=== PATIENT | male | born 1980 | race African-American/Black ===

== ENCOUNTER 2022-04-30 21:22 | Emergency (ER) | payer SELFPAY ==
[2022-04-30] MEDS ORDERED: ONDANSETRON 4 MG/2 ML VIAL ONE (22:46)
[2022-04-30] MEDS ORDERED: NA CHLORIDE 0.9% 1,000 ML ONE (22:46)
[2022-04-30] MEDS ORDERED: MORPHINE 4 MG/ML SYR ONE (22:46)
[2022-04-30 23:21] LABS: Absolute Lymphocytes (CBC) 1.3 K/uL (0.7-4.9); Hematocrit 43.7 % (39.6-49.0); Lymphocytes % 16.6 % (15.3-44.8); MCV 85.1 fL (80-100); MPV 8.2 fL (7.6-11.3); RBC Red Blood Cell Count 5.14 M/uL (4.33-5.43)
[2022-04-30 23:38] LABS: Albumin 3.8 g/dL (3.4-5.0); Bilirubin Total 0.5 mg/dL (0.2-1.0); Potassium 3.5 mmol/L (3.5-5.1); Protein, Total 7.9 g/dL (6.4-8.2)
--- NOTE | 2022-05-01 01:54 | EDPHYS ---
Physician Documentation [facility] Name: Solo Greenberg Age: 41 yrs Sex: Male : 1980 Arrival Date: 04/30/2022 Time: 21:24 Bed 27 Private MD: ED Physician Deepak Ayala HPI: 05/01 00:57 This 41 yrs old Black Male presents to ER via Wheelchair with complaints of Abdominal kb Pain. 00:57 The patient presents with abdominal pain right lower quadrant. Onset: The kb symptoms/episode began/occurred at 19:30. The symptoms do not radiate. Associated signs and symptoms: none. The symptoms are described as constant. Modifying factors: The symptoms are alleviated by nothing, the symptoms are aggravated by movement, pressure. Severity of pain: At its worst the pain was moderate in the emergency department the pain is unchanged. The patient has not experienced similar symptoms in the past. The patient has not recently seen a physician. Historical: - Allergies: 04/30 21:33 No Known Allergies; hb - Home Meds: 21:33 None [Active]; hb - PMHx: 21:33 None; hb - PSHx: 21:33 None; hb - Immunization history:: Adult Immunizations up to date. - Social history:: Smoking status: Patient reports the use of cigarette tobacco products, smokes one-half pack cigarettes per day. ROS: 05/01 00:56 Constitutional: Negative for fever, chills, and weight loss. kb Abdomen/GI: Positive for abdominal pain, Negative for nausea, vomiting, and diarrhea. All other systems are negative. Exam: 00:56 Constitutional: This is a well developed, well nourished patient who is awake, alert, kb and in no acute distress. Head/Face: Normocephalic, atraumatic. ENT: Moist Mucous membranes Cardiovascular: Regular rate and rhythm with a normal S1 and S2. No gallops, murmurs, or rubs. No pulse deficits. Respiratory: Respirations even and unlabored. No increased work of breathing. Talking in full sentences Skin: Warm, dry with normal turgor. Normal color. MS/ Extremity: Pulses equal, no cyanosis. Neurovascular intact. Full, normal range of motion. Neuro: Awake and alert, GCS 15, oriented to person, place, time, and situation. Moves all extremities. Normal gait. Psych: Awake, alert, with orientation to person, place and time. Behavior, mood, and affect are within normal limits. 00:56 Abdomen/GI: Inspection: abdomen appears normal, Bowel sounds: normal, Palpation: soft, in all quadrants, moderate abdominal tenderness, in the right lower quadrant, Indicators: Rovsing's sign is positive. Vital Signs: 04/30 21:31 BP 134 / 77; Pulse 79; Resp 16; Temp 98.6; Pulse Ox 100% ; Weight 72.57 kg; Height 5 hb ft. 9 in. (175.26 cm); Pain 8/10; 23:04 BP 124 / 78; Pulse 82; Resp 18; Pulse Ox 100% on R/A; tw5 05/01 00:09 Pain 5/10; tw5 00:09 BP 114 / 60; Pulse 85; Resp 18; Pulse Ox 100% ; Pain 5/10; tw5 02:18 BP 106 / 53; Pulse 84; Resp 18; Pulse Ox 99% on R/A; Pain 6/10; tw5 04/30 21:31 Body Mass Index 23.63 (72.57 kg, 175.26 cm) hb MDM: 04/30 21:33 Patient medically screened. kb 05/01 00:53 Data reviewed: vital signs, nurses notes. Data interpreted: Pulse oximetry: on room air kb is 100 %. Interpretation: normal. 01:05 Transition of care: After a detail discussion of the patient's case, care is kb transferred to [facility]. 01:56 ED course: Discussed labs and CT findings with patient. Patient to follow-up with Dr. renea Mcneil in 2 to 3 days. Patient understands and agrees with plan. All questions were answered. Return precautions discussed include worsening symptoms, or any other concerns. 04/30 21:34 Order name: CBC with Diff; Complete Time: 23:24 kb 04/30 21:34 Order name: CMP; Complete Time: 23:39 kb 04/30 21:34 Order name: Lipase; Complete Time: 23:39 kb 04/30 21:34 Order name: CT Abd/Pelvis - IV Contrast Only kb 04/30 21:34 Order name: IV Saline Lock; Complete Time: 23:06 kb 04/30 21:34 Order name: Labs collected and sent; Complete Time: 23:06 kb Administered Medications: 04/30 23:06 Drug: NS 0.9% 1000 ml Route: IV; Rate: 1 bolus; Site: left antecubital; 05/01 00:09 Follow up: Response: No adverse reaction; IV Status: Completed infusion; IV Intake: tw5 1000ml 04/30 23:06 Drug: Zofran (Ondansetron) 4 mg Route: IVP; Site: left antecubital; 05/01 00:08 Follow up: Response: No adverse reaction 04/30 23:06 Drug: morphine 4 mg Route: IVP; Infused Over: 4 mins; Site: left antecubital; 05/01 00:09 Follow up: Pain 5/10 Adult; Response: No adverse reaction; Pain is decreased Disposition: 01:57 Co-signature as Attending Physician, Deepak Ayala DO. ms3 Disposition Summary: 05/01/22 01:53 Discharge Ordered Location: Home ms3 Condition: Stable ms3 Diagnosis - Lower abdominal pain, unspecified ms3 Followup: ms3 - With: Dorian Mcneil DO - When: 2 - 3 days - Reason: Recheck today's complaints Discharge Instructions: - Discharge Summary Sheet ms3 - Abdominal Pain, Adult ms3 - Constipation, Adult ms3 - Constipation, Adult, [id number] ms3 Forms: - Medication Reconciliation Form ms3 - Work release form bb - Thank You Letter ms3 - Antibiotic Education ms3 - Prescription Opioid Use ms3 Signatures: Dispatcher [employer] Therese Kaba, BENITA STEARNS-Ericka Patterson, RN RN Deepak Mandel DO DO ms3 Rahel Amado tw5
--- NOTE | 2022-05-01 01:54 | ER ---
Nurse's Notes [facility] Name: Solo Greenberg Age: 41 yrs Sex: Male : 1980 Arrival Date: 04/30/2022 Time: 21:24 Bed 27 Private MD: Diagnosis: Lower abdominal pain, unspecified Presentation: 04/30 21:31 Chief complaint: Sudden right sided abdominal pain and nausea that started 2 hours ago. hb Coronavirus screen: At this time, the client does not indicate any symptoms associated with coronavirus-19. Ebola Screen: No symptoms or risks identified at this time. Initial Sepsis Screen: Does the patient meet any 2 criteria? No. Patient's initial sepsis screen is negative. Does the patient have a suspected source of infection? No. Patient's initial sepsis screen is negative. Risk Assessment: Do you want to hurt yourself or someone else? Patient reports no desire to harm self or others. Onset of symptoms was April 30, 2022. 21:31 Method Of Arrival: Wheelchair hb 21:31 Acuity: KEVEN 3 hb Triage Assessment: 21:33 General: Appears in no apparent distress. Behavior is calm, cooperative. Pain: Pain hb currently is 8 out of 10 on a pain scale. Neuro: Level of Consciousness is awake, alert, obeys commands, Oriented to person, place, time, situation. Cardiovascular: Patient's skin is warm and dry. Respiratory: Respiratory effort is even, unlabored, Respiratory pattern is regular, symmetrical. GI: Reports lower abdominal pain. Historical: - Allergies: 21:33 No Known Allergies; hb - Home Meds: 21:33 None [Active]; hb - PMHx: 21:33 None; hb - PSHx: 21:33 None; hb - Immunization history:: Adult Immunizations up to date. - Social history:: Smoking status: Patient reports the use of cigarette tobacco products, smokes one-half pack cigarettes per day. Screenin:21 Abuse screen: Denies threats or abuse. Denies injuries from another. Nutritional tw5 screening: No deficits noted. Tuberculosis screening: No symptoms or risk factors identified. Fall Risk IV access (20 points). Assessment: 22:21 Pain: Complains of pain in right lower quadrant Pain currently is 10 out of 10 on a tw5 pain scale. 23:04 General: Appears uncomfortable, Behavior is calm, cooperative, appropriate for age. tw5 Pain: Complains of pain in posterior aspect of right lateral abdomen Pain currently is 8 out of 10 on a pain scale. 23:04 Neuro: No deficits noted. Respiratory: No deficits noted. GI: Bowel sounds present X 4 tw5 quads. Abdomen is tender to palpation in right lower quadrant. 05/01 02:18 Reassessment: Patient states feeling better. Patient states symptoms have improved. tw5 Vital Signs: 04/30 21:31 BP 134 / 77; Pulse 79; Resp 16; Temp 98.6; Pulse Ox 100% ; Weight 72.57 kg; Height 5 hb ft. 9 in. (175.26 cm); Pain 8/10; 23:04 BP 124 / 78; Pulse 82; Resp 18; Pulse Ox 100% on R/A; tw5 05/01 00:09 Pain 5/10; tw5 00:09 BP 114 / 60; Pulse 85; Resp 18; Pulse Ox 100% ; Pain 5/10; tw5 02:18 BP 106 / 53; Pulse 84; Resp 18; Pulse Ox 99% on R/A; Pain 6/10; tw5 04/30 21:31 Body Mass Index 23.63 (72.57 kg, 175.26 cm) hb ED Course: 04/30 21:24 Patient arrived in ED. as 21:26 Therese Sepulveda FNP-C is PHCP. kb 21:26 Deepak Ayala DO is Attending Physician. kb 21:33 Triage completed. hb 21:33 Arm band placed on. hb 22:21 Placed in gown. Bed in low position. Call light in reach. Adult w/ patient. Client tw5 placed on continuous cardiac and pulse oximetry monitoring. NIBP monitoring applied. Door closed. Noise minimized. Moved to private room. Warm blanket given. Verbal reassurance given. 22:45 Rahel Amado is Primary Nurse. tw5 23:04 No apparent distress. Awaiting lab results, Awaiting CT Scan. tw5 23:04 Initial lab(s) drawn, by me, sent to lab. Inserted saline lock: 20 gauge in left tw5 antecubital area, using aseptic technique. Blood collected. 23:06 CBC with Diff Sent. tw5 23: CMP Sent. tw5 23: Lipase Sent. tw5 05/01 00:28 CT Abd/Pelvis - IV Contrast Only In Process Unspecified. EDMS 01:51 Dorian Mcneil DO is Referral Physician. ms3 02:18 No provider procedures requiring assistance completed. IV discontinued, intact, tw5 bleeding controlled, No redness/swelling at site. Pressure dressing applied. Administered Medications: 04/30 23:06 Drug: NS 0.9% 1000 ml Route: IV; Rate: 1 bolus; Site: left antecubital; tw5 05/01 00:09 Follow up: Response: No adverse reaction; IV Status: Completed infusion; IV Intake: tw5 1000ml 04/30 23:06 Drug: Zofran (Ondansetron) 4 mg Route: IVP; Site: left antecubital; tw5 05/01 00:08 Follow up: Response: No adverse reaction tw5 04/30 23:06 Drug: morphine 4 mg Route: IVP; Infused Over: 4 mins; Site: left antecubital; tw5 05/01 00:09 Follow up: Pain 5/10 Adult; Response: No adverse reaction; Pain is decreased tw5 Medication: 04/30 22:21 VIS not applicable for this client. tw5 Intake: 05/01 00:09 IV: 1000ml; Total: 1000ml. tw5 Outcome: 01:53 Discharge ordered by . ms3 02:18 Discharged to home ambulatory. tw5 02:18 Condition: good 02:18 Discharge instructions given to patient, Instructed on discharge instructions, follow up and referral plans. Demonstrated understanding of instructions, follow-up care, Prescriptions given X 02:19 Patient left the ED. tw5 Signatures: Dispatcher [employer] EDMS Therese Sepulveda, BENITA STEARNS-Veronica Cunningham as Ericka Muro, [place] RN Deepak Mandel DO DO ms3 Rahel Amado tw5 Corrections: (The following items were deleted from the chart) 04/30 21:34 21:31 72.57 kg; Height 5 ft. 9 in.; BMI: 23.6; Pain 8/10; hb hb
[2022-05-01 02:30] VITALS: TEMP 98.6
[2022-05-01 02:47] VITALS: BP 106/53; O2SAT 99
--- NOTE | 2022-05-02 10:26 | RAD REPORT ---
EXAM DESCRIPTION: CT - Abdomen Pelvis W Contrast - 05/01/2022 12:26 am CLINICAL HISTORY: 41 years, Male, Abdominal Pain COMPARISON: None TECHNIQUE: Contrast-enhanced images of the abdomen and pelvis were performed utilizing 5 mm slice th ickness at 5 mm interval reconstruction from the lung bases to the ischial tuberosities after the adm inistration of IV contrast. In addition multiplanar reformats in the coronal and sagittal plane were obtained and reviewed. This exam was performed according to our departmental dose-optimization protocol, which includes auto mated exposure control, adjustment of the mA and/or kV according to patient size and/or use of iterat neyda reconstruction technique. FINDINGS: The lung bases demonstrate to be clear. The liver, gallbladder, pancreas, spleen and adrenal glands demonstrate to be unremarkable, no focal lesions are noted. The kidneys demonstrate normal uptake of contrast media. No evidence for nephrolithiasis and/or hydro nephrosis. Grossly the unopacified stomach, small bowel and large bowel demonstrate to be within normal limits. There is no evidence for bowel dilatation/or free air. Mild fecal stasis within the right site colo n. The appendix demonstrate to be within normal limits. The urinary bladder demonstrate to be distended with no gross abnormalities. The prostate gland is normal. The aorta demonstrate to be normal. There is no retroperitoneal lymphadenopathy. There is no ascites. The rest of the soft tissue and bony structures are within normal limits. IMPRESSION: Mild fecal stasis within the right site colon. Otherwise unremarkable CT scan of the abdomen and pelvis with contrast. Electronically signed by: Dominguez Stock MD 05/01/2022 1:34 AM CDT Due to temporary technical issues with the PACS/Fluency reporting system, reports are being signed by the in house radiologists without review as a courtesy to insure prompt reporting. The interpreting radiologist is fully responsible for the content of the report.
== END 2022-05-01 02:19 | disposition home or self-care (01) ==
LOC: ER 21:22
DX: R10.31 Right lower quadrant pain (principal); F17.210 Nicotine dependence, cigarettes, uncomplicated
CPT/HCPCS: 36415; 74177; 80053; 83690; 85025; 96361; 96374; 96375; 99284; J2405; J7030; Q9967

== ENCOUNTER → 2023-07-12 | Emergency (ER) | payer SELFPAY ==
[~2023-07-12] MED LIST: HYDROCODONE/APAP 5/325 MG TAB ONE; levoFLOXacin 250 MG TAB ONE
--- OUTSIDE RECORDS SUMMARY | 2023-07-12 07:00 | XMS REPORT | Continuity of Care Document ---
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
[2023-07-12 07:49] LABS: Specific Gravity 1.024 (1.005-1.030); Urine Bacteria None Seen /HPF (<20); Urine Bilirubin NEGATIVE (Negative); Urine Blood 1+ (Negative); Urine Clarity Turbid (Clear); Urine Color Yellow (Yellow); Urine Glucose NEGATIVE (Negative); Urine Mucus Slight /HPF (None Seen); Urine Protein 1+ (Negative); Urine Urobilinogen Normal (Normal)
--- NOTE | 2023-07-12 09:02 | RAD REPORT ---
EXAM DESCRIPTION: US - Scrotum Testicles - 07/12/2023 8:19 am CLINICAL HISTORY: Swelling;Pain COMPARISON: No comparisons FINDINGS: The right testicle measures 4.3 x 3.1 x 1.7 cm . No intratesticular masses or evidence of testicular torsion. The left testicle measures 3.5 x 3.2 x 2.0 cm. No intratesticular masses or evidence of testicular to rsion. Enlarged heterogeneous appearance of the left epididymal head with increased vascularity. 6 mm thin-w alled anechoic right epididymal head cyst may represent a small spermatocele. No pathologic fluid collections. IMPRESSION: Enlarged and hypervascular left epididymal head, suggestive of acute epididymitis.
--- NOTE | 2023-07-12 09:13 | ER ---
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 Coronavirus screen: At this time, the client does not indicate any symptoms associated with coronavirus-19. Ebola Screen: Patient negative for fever greater than or equal to 101.5 degrees Fahrenheit, and additional compatible Ebola Virus Disease symptoms Patient denies exposure to infectious person. Patient denies travel to an Ebola-affected area in the 21 days before illness onset. No symptoms or risks identified at this time. Initial Sepsis Screen: Does the patient meet any 2 criteria? No. Patient's initial sepsis screen is negative. Does the patient have a suspected source of infection? No. Patient's initial sepsis screen is negative. Risk Assessment: Do you want to hurt yourself or someone else? Patient reports no desire to harm self or others. Onset of symptoms was July 10, 2023. 07:12 Method Of Arrival: Ambulatory iw 07:12 Acuity: KEVEN 3 iw Historical: - Allergies: 07:13 No Known Allergies; iw - Home Meds: 07:13 None [Active]; iw - PMHx: 07:13 None; iw - PSHx: 07:13 None; iw - Immunization history:: Adult Immunizations unknown. - Family history:: not pertinent. - Social history:: Smoking status: Patient denies any tobacco usage or history of. - Hospitalizations: : No recent hospitalization is reported. Screenin:41 [facility] ED Fall Risk Assessment (Adult) History of falling in the last 3 months, ko1 including since admission No falls in past 3 months (0 pts) Confusion or Disorientation No (0 pts) Intoxicated or Sedated No (0 pts) Impaired Gait No (0 pts) Mobility Assist Device Used No (0 pt) Altered Elimination No (0 pt) Score/Fall Risk Level 0 - 2 = Low Risk Oriented to surroundings, Maintained a safe environment, Educated pt \T\ family on fall prevention, incl call for assistance when getting out of bed, Assessed \T\ reinforced patient's understanding of fall precautions, Provided non-skid footwear, Hourly rounding (assess needs \T\ fall precautionary measures) done, Used ambulatory aids as needed (educated on \T\ assisted with), Used gait belt as appropriate. Abuse screen: Denies threats or abuse. Denies injuries from another. Nutritional screening: No deficits noted. Tuberculosis screening: No symptoms or risk factors identified. Assessment: 07:41 General: Appears in no apparent distress. uncomfortable, Behavior is calm, cooperative, ko1 appropriate for age. Pain: Complains of pain in left testicle. Neuro: No deficits noted. Cardiovascular: No deficits noted. Respiratory: No deficits noted. GI: No deficits noted. : No deficits noted. EENT: No deficits noted. Derm: No deficits noted. Musculoskeletal: No deficits noted. Vital Signs: 07:13 BP 131 / 80; Pulse 92; Resp 16; Temp 97.8; Pulse Ox 100% on R/A; Weight 65.77 kg; iw Height 5 ft. 8 in. ; Pain 8/10; 09:18 BP 128 / 74; Pulse 88; Resp 16; Pulse Ox 98% ; ko1 07:13 Body Mass Index 22.05 (65.77 kg, 172.72 cm) iw 07:13 Pain Scale: Adult iw ED Course: 07:01 Patient arrived in ED. gm2 07:02 Gonzalo Yuen MD is Attending Physician. rn 07:13 Triage completed. iw 07:13 Arm band placed on. iw 07:25 Dona Jain, RN is Primary Nurse. ko1 07:38 Urinalysis w/ reflexes Sent. ko1 07:41 Patient has correct armband on for positive identification. Bed in low position. Call ko1 light in reach. Pulse ox on. NIBP on. Door closed. Noise minimized. Lights dimmed. Warm blanket given. 07:41 No provider procedures requiring assistance completed. ko1 08:21 US Scrotum Testicles In Process Unspecified. EDMS 09:18 Provided Education on: na. ko1 09:18 Patient did not have IV access during this emergency room visit. ko1 Administered Medications: 09:08 Drug: LevOfloxacin PO 500 mg PO once Route: PO; ko1 09:08 Drug: HYDROcodone-acetaminophen PO 5 mg-325 mg 1 tabs PO once Route: PO; ko1 Medication: 07:41 VIS not applicable for this client. ko1 Outcome: 09:12 Discharge ordered by . rn 09:18 Discharged to home ambulatory, with family, ko1 09:18 Condition: stable 09:18 Discharge instructions given to patient, family, Instructed on discharge instructions, follow up and referral plans. medication usage, Demonstrated understanding of instructions, follow-up care, medications, Prescriptions given X 2, 09:19 Patient left the ED. ko1 Signatures: Dispatcher [employer] EDNita Collier, RN [place] iw Gonzalo Yuen MD MD rn Oliver, Kathy, RN RN ko1 Pamela Rincon gm2 Corrections: (The following items were deleted from the chart) 07:20 07:13 BP 131 / 80; Pulse 92bpm; Resp 16bpm; Pulse Ox 100% RA; iw iw
--- NOTE | 2023-07-12 09:13 | EDPHYS ---
Physician Documentation [facility] Name: Solo Greenberg Age: 42 yrs Sex: Male : 1980 Arrival Date: 07/12/2023 Time: 06:56 Bed 5 Private MD: ED Physician Gonzalo Yuen HPI: 07/12 07:22 This 42 yrs old Black Male presents to ER via Ambulatory with complaints of Testicular rn Swelling, Testicular Pain. 07:22 The patient presents with scrotal pain, of the left side, with swelling, swelling, that rn is moderate, of the left testicle. Onset: The symptoms/episode began/occurred yesterday. Modifying factors: The symptoms are alleviated by supine position, the symptoms are aggravated by movement. Associated signs and symptoms: Pertinent negatives: abdominal pain, fever, hematuria, nausea, vomiting. Severity of symptoms: At their worst the symptoms were moderate, in the emergency department the symptoms are unchanged. The patient has not experienced similar symptoms in the past. Patient reports left-sided testicular pain and subjective swelling that began yesterday while at work. Was in seated position, no trauma, no fever, no chills, no urinary symptoms. Has never happened to him before. No history of abdominal surgery or hernia.. Historical: - Allergies: 07:13 No Known Allergies; iw - Home Meds: 07:13 None [Active]; iw - PMHx: 07:13 None; iw - PSHx: 07:13 None; iw - Immunization history:: Adult Immunizations unknown. - Family history:: not pertinent. - Social history:: Smoking status: Patient denies any tobacco usage or history of. - Hospitalizations: : No recent hospitalization is reported. ROS: 07:22 Constitutional: Negative for fever, chills, and weight loss, Abdomen/GI: Negative for rn abdominal pain, nausea, vomiting, diarrhea, and constipation, Back: Negative for injury and pain, : Positive for left testicular swelling and pain Exam: 07:22 Constitutional: This is a well developed, well nourished patient who is awake, alert, rn and in no acute distress. Abdomen/GI: Soft, nontender, no masses, no inguinal hernia or swelling, no inguinal lymphadenopathy. Femoral pulses strong Male : Mild swelling with tenderness of the left testes, normal lie, mild tenderness superior pole of left testicle. No hard masses. No warmth. Vital Signs: 07:13 BP 131 / 80; Pulse 92; Resp 16; Temp 97.8; Pulse Ox 100% on R/A; Weight 65.77 kg; iw Height 5 ft. 8 in. ; Pain 8/10; 09:18 BP 128 / 74; Pulse 88; Resp 16; Pulse Ox 98% ; ko1 07:13 Body Mass Index 22.05 (65.77 kg, 172.72 cm) iw 07:13 Pain Scale: Adult iw MDM: 07:02 Patient medically screened. rn 09:11 Differential diagnosis: urethritis, UTI, acute epididymitis, varicocele, hydrocele. rn Data reviewed: vital signs, nurses notes, lab test result(s), radiologic studies, ultrasound, and as a result, I will discharge patient. Counseling: I had a detailed discussion with the patient and/or guardian regarding the historical points, exam findings, and any diagnostic results supporting the discharge/admit diagnosis, lab results, radiology results, the need for outpatient follow up, to return to the emergency department if symptoms worsen or persist or if there are any questions or concerns that arise at home. Special discussion: I discussed with the patient/guardian in detail that at this point there is no indication for admission to the hospital. It is understood, however, that if the symptoms persist or worsen the patient needs to return immediately for re-evaluation. Based on the history and exam findings, there is no indication for further emergent testing or inpatient evaluation. I discussed with the patient/guardian the need to see the primary care provider for further evaluation of the symptoms. I discussed with the patient/guardian the need to see the urologist for further evaluation of the symptoms. 09:11 ED course: Ultrasound and story consistent with acute epididymitis. Patient would like rn to go back to work starting tomorrow night. I have personally reviewed all of the results, including but not limited to blood tests and imaging deemed necessary to safely discharge this patient at this time. All results given to and printed out for patient. I personally went over all the results with the patient and answered all questions. Patient will follow-up with PCP and or specialist as discussed. Return precautions given and understood.. 07/12 07:18 Order name: Urinalysis w/ reflexes; Complete Time: 08:46 rn 07/12 07:53 Order name: Urine Culture EDMS 07/12 07:18 Order name: US Scrotum Testicles; Complete Time: 09:04 rn Administered Medications: 09:08 Drug: LevOfloxacin PO 500 mg PO once Route: PO; ko1 09:08 Drug: HYDROcodone-acetaminophen PO 5 mg-325 mg 1 tabs PO once Route: PO; ko1 Disposition Summary: 07/12/23 09:12 Discharge Ordered Notes: Location: Home rn Problem: new rn Symptoms: have improved rn Condition: Stable rn Diagnosis - Epididymitis rn Followup: rn - With: Private Physician - When: As needed - Reason: Recheck today's complaints, Re-evaluation by your physician Discharge Instructions: - Discharge Summary Sheet rn - Epididymitis rn Forms: - Medication Reconciliation Form rn - Thank You Letter rn - 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
[2023-07-12 10:17] VITALS: BP 128/74; TEMP 97.8; O2SAT 98
== END ==
LOC: ER 06:56
DX: N45.1 Epididymitis (principal)
CPT/HCPCS: 76870; 81001; 87086; 87088; 99284

== ENCOUNTER → 2023-07-23 | Emergency (ER) | payer BC, SELFPAY ==
[~2023-07-23] MED LIST changes: +AZITHROMYCIN 250 MG TAB ONE; +CEFTRIAXONE 2000 MG/VIAL ONE; -HYDROCODONE/APAP 5/325 MG TAB ONE; +KETOROLAC 30 MG/ML INJ ONE; +Levofloxacin 750mg IV 750 MG/150 ML BAG IV ONE; +MORPHINE 4 MG/ML SYR ONE; +ONDANSETRON 4 MG/2 ML VIAL ONE; -levoFLOXacin 250 MG TAB ONE
--- OUTSIDE RECORDS SUMMARY | 2023-07-23 17:12 | XMS REPORT | Continuity of Care Document ---
Author Name Unknown Address [address] [place] [address] [address]. [address] Address [address] [facility] Miguel. 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
[2023-07-23 17:55] LABS: Absolute Lymphocytes (CBC) 1.7 K/uL (0.7-4.9); Hematocrit 39.3 % (39.6-49.0); MCV 83.6 fL (80-100); MPV 7.8 fL (7.6-11.3); Platelets 277 thou/uL (152-406)
[2023-07-23 18:20] LABS: Specific Gravity 1.021 (1.005-1.030); Urine Bacteria None Seen /HPF (<20); Urine Bilirubin NEGATIVE (Negative); Urine Blood Negative (Negative); Urine Clarity Clear (Clear); Urine Color Light-Yellow (Yellow); Urine Glucose NEGATIVE (Negative); Urine Mucus Slight /HPF (None Seen); Urine Protein TRACE (Negative); Urine Urobilinogen Normal (Normal); Urine WBC Clump Rare /HPF (None Seen)
[2023-07-23 18:27] LABS: Albumin 3.3 g/dL (3.4-5.0); Bilirubin Total 0.3 mg/dL (0.2-1.0); Potassium 3.8 mEq/L (3.5-5.1); Protein, Total 7.8 g/dL (6.4-8.2)
--- NOTE | 2023-07-23 19:13 | ER ---
Nurse's Notes [facility] Name: Solo Greenberg Age: 42 yrs Sex: Male : 1980 Arrival Date: 07/23/2023 Time: 17:07 Bed 18 Private MD: Diagnosis: Epididymo-orchitis;UTI/ Urinary tract infection, site not specified Presentation: 07/23 17:22 Chief complaint: Patient states: pain to left testicle. Pt was seen here 1.5 weeks ago cm10 and was diagnosed with epididymitis. Pt states that the swelling and pain have not improved. Pt reports taking ABX as prescribed. Coronavirus screen: Vaccine status: Patient reports receiving the 2nd dose of the covid vaccine. Client denies travel out of the [place] in the last 14 days. Ebola Screen: Patient denies travel to an Ebola-affected area in the 21 days before illness onset. No symptoms or risks identified at this time. Initial Sepsis Screen: Does the patient meet any 2 criteria? No. Patient's initial sepsis screen is negative. Does the patient have a suspected source of infection? No. Patient's initial sepsis screen is negative. Risk Assessment: Do you want to hurt yourself or someone else? Patient reports no desire to harm self or others. Onset of symptoms was July 23, 2023. 17:22 Method Of Arrival: Ambulatory cm10 17:22 Acuity: KEEVN 3 cm10 Historical: - Allergies: 17:24 No Known Allergies; cm10 - PMHx: 17:24 None; cm10 - Immunization history:: Adult Immunizations up to date. - Social history:: Smoking status: Patient reports the use of cigarette tobacco products, cigars. Screenin:42 [facility] ED Fall Risk Assessment (Adult) History of falling in the last 3 months, cp4 including since admission No falls in past 3 months (0 pts) Confusion or Disorientation No (0 pts) Intoxicated or Sedated No (0 pts) Impaired Gait No (0 pts) Mobility Assist Device Used No (0 pt) Altered Elimination No (0 pt) Score/Fall Risk Level 0 - 2 = Low Risk Oriented to surroundings, Maintained a safe environment, Educated pt \T\ family on fall prevention, incl call for assistance when getting out of bed, Assessed \T\ reinforced patient's understanding of fall precautions, Provided non-skid footwear, Hourly rounding (assess needs \T\ fall precautionary measures) done. Abuse screen: Denies threats or abuse. Nutritional screening: No deficits noted. Tuberculosis screening: No symptoms or risk factors identified. Assessment: 17:42 General: Appears in no apparent distress. Behavior is calm, cooperative, appropriate cp4 for age. Pain: Complains of pain in pelvis. Vital Signs: 17:22 BP 129 / 88; Pulse 66; Resp 16; Temp 98(TE); Pulse Ox 100% ; Weight 67.59 kg; Height 5 cm10 ft. 9 in. ; Pain 10/10; 21:11 BP 124 / 84; Pulse 71; Resp 18; Pulse Ox 99% ; cp4 17:22 Body Mass Index 22.00 (67.59 kg, 175.26 cm) cm10 17:22 Pain Scale: Adult cm10 ED Course: 17:13 Patient arrived in ED. mg5 17:14 Noé Chávez MD is Attending Physician. ec2 17:24 Triage completed. cm10 17:24 Arm band placed on Patient placed in an exam room, on a stretcher. cm10 17:28 Zaira Mcginnis is Primary Nurse. cp4 17:42 Placed in gown. Bed in low position. Call light in reach. Side rails up X 1. cp4 17:42 CMP Sent. cp4 17:42 CBC with Diff Sent. cp4 17:42 No provider procedures requiring assistance completed. Inserted saline lock: 20 gauge cp4 in right antecubital area, using aseptic technique. Blood collected. 18:26 Scrotum Testicles US In Process Unspecified. EDMS 19:07 Attending Physician role handed off by Noé Chávez MD vel 19:07 Juve Norris MD is Attending Physician. vel 19:11 Hilario Macedo MD is Referral Physician. vel 21:12 Provided Education on: epididyitis, orchitis, and UTI.. cp4 21:12 intact, bleeding controlled, No redness/swelling at site. Pressure dressing applied. cp4 Administered Medications: 18:04 Drug: morphine IVP or IV 2 mg IVP once over 4 mins Route: IVP; Infused Over: 4 mins; cp4 Site: right antecubital; 18:40 Follow up: Response: No adverse reaction cp4 21:08 Follow up: Response: No adverse reaction cp4 18:04 Drug: Ondansetron IVP 4 mg IVP once; over 2 minutes Route: IVP; Site: right antecubital;cp4 18:40 Follow up: Response: No adverse reaction cp4 21:08 Follow up: Response: No adverse reaction cp4 19:40 Drug: levofloxacin IVPB 750 mg 150 ml IVPB once over 90 mins Volume: 150 ml; Route: cp4 IVPB; Infused Over: 90 mins; Site: right antecubital; 21:07 Follow up: Response: No adverse reaction; IV Status: Completed infusion cp4 19:40 Drug: Rocephin IV 2 grams IV at per protocol once; Given slow IV push per pharmarcy cp4 instructions Route: IV; Rate: per protocol; Site: right antecubital; 21:07 Follow up: Response: No adverse reaction; IV Status: Completed infusion cp4 19:40 Drug: Ketorolac IVP 30 mg IVP once Route: IVP; Site: right antecubital; cp4 21:07 Follow up: Response: No adverse reaction cp4 19:40 Drug: morphine IVP or IV 4 mg IVP once over 4 mins Route: IVP; Infused Over: 4 mins; cp4 Site: right antecubital; 21:07 Follow up: Response: No adverse reaction cp4 19:40 Drug: AZITHromycin PO 1 grams PO once Route: PO; cp4 21:07 Follow up: Response: No adverse reaction cp4 Medication: 17:42 VIS not applicable for this client. cp4 Outcome: 19:11 Discharge ordered by . vel 21:12 Discharged to home ambulatory, cp4 21:12 Condition: stable 21:12 Discharge instructions given to patient, Instructed on discharge instructions, follow up and referral plans. medication usage, Demonstrated understanding of instructions, follow-up care, medications, Prescriptions given X 3, 21:13 Patient left the ED. cp4 Signatures: Dispatcher [employer] Juve Coffman MD MD cha Martinez, Clarissa, RN RN cm10 Kerri Andrew 5 Noé Chávez MD MD ec2 Zaira Mcginnis cp4
--- NOTE | 2023-07-23 19:13 | RAD REPORT ---
EXAM DESCRIPTION: US - Scrotum Testicles - 07/23/2023 6:25 pm CLINICAL HISTORY: teste swelling, L teste COMPARISON: Scrotum Testicles dated 07/12/2023 TECHNIQUE: Sonographic grayscale and color flow images of the scrotum were obtained. FINDINGS: The right testicle measures 4.7 x 2.2 x 3.2 cm. No intratesticular masses or evidence of t esticular torsion. The left testicle measures 4.1 x 2.8 x 3.0 cm. Mildly increased vascularity throughout the testicular parenchyma. No intratesticular masses or evidence of testicular torsion. Incidentally noted ovoid well-circumscribed anechoic right epididymal head 9 mm cyst. Enlargement and hypervascularity throughout the left epididymal head cyst. Complex left hydrocele with septations. Benign-appearing left groin lymph node. IMPRESSION: Hypervascular left epididymal head, and to lesser extent left testicular parenchyma, con cerning for acute epididymo-orchitis. Complex left hydrocele.
--- NOTE | 2023-07-23 19:13 | EDPHYS ---
Physician Documentation [facility] Name: Solo Greenberg Age: 42 yrs Sex: Male : 1980 Arrival Date: 07/23/2023 Time: 17:07 Bed 18 Private MD: ED Physician Juve Norris HPI: 07/23 17:37 This 42 yrs old Black Male presents to ER via Ambulatory with complaints of Testicular ec2 Swelling. 17:37 Patient arrives today for evaluation of left testicular swelling and pain. Patient ec2 reports that he was diagnosed with epididymitis recently, states that he is having worsening swelling and pain and discomfort. Patient reports no nausea or vomiting, no fevers or chills, denies any urinary complaints, denies any penile discharge. States he has been on antibiotics with minimal to no improvement in symptoms.. Historical: - Allergies: 17:24 No Known Allergies; cm10 - PMHx: 17:24 None; cm10 - Immunization history:: Adult Immunizations up to date. - Social history:: Smoking status: Patient reports the use of cigarette tobacco products, cigars. ROS: 17:38 Constitutional: as per hpi ec2 Exam: 17:38 Constitutional: GEN: NAD Head: atraumatic Eyes: EOMI Ears: External ears are ec2 normal. CV: regular rate LUNGS: no respiratory distress ABD: non-distended. : Markedly swollen left testicle, no overlying erythema, no crepitus appreciated, no penile discharge noted. Difficult to discern cremasteric reflex given the degree of swelling. SKIN: no evidence of rashes MSK: no evidence of trauma NEURO: moves all extremities equally Vital Signs: 17:22 BP 129 / 88; Pulse 66; Resp 16; Temp 98(TE); Pulse Ox 100% ; Weight 67.59 kg; Height 5 cm10 ft. 9 in. ; Pain 10/10; 21:11 BP 124 / 84; Pulse 71; Resp 18; Pulse Ox 99% ; cp4 17:22 Body Mass Index 22.00 (67.59 kg, 175.26 cm) cm10 17:22 Pain Scale: Adult cm10 MDM: 17:16 Patient medically screened. ec2 17:38 Data reviewed: vital signs. ED course: Patient arrives today for scrotal complaints. ec2 Examination remarkable for findings as noted above. Will obtain lab work, repeat ultrasound, urine studies, treat the patient's pain and reassess. Currently considering testicular torsion, scrotal abscess, epididymitis, UTI.. 17:39 ED course: Of note patient was seen on 07/12, external records reviewed by me, shows ec2 enlarged hypervascular left epididymal head suggestive of acute epididymitis. . 18:32 ED course: Metabolic profile is unremarkable. Urine study shows leuk esterase as well ec2 as WBCs. . 07/23 17:37 Order name: CBC with Diff; Complete Time: 19:08 ec2 07/23 17:37 Order name: CMP; Complete Time: 18:32 ec2 07/23 17:38 Order name: UAM; Complete Time: 18:32 ec2 07/23 17:38 Order name: GC (Hector/Chl) Probe URINE ec2 07/23 18:37 Order name: Urine Culture EDMS 07/23 17:37 Order name: Scrotum Testicles US; Complete Time: 19:18 ec2 Administered Medications: 18:04 Drug: morphine IVP or IV 2 mg IVP once over 4 mins Route: IVP; Infused Over: 4 mins; cp4 Site: right antecubital; 18:40 Follow up: Response: No adverse reaction cp4 21:08 Follow up: Response: No adverse reaction cp4 18:04 Drug: Ondansetron IVP 4 mg IVP once; over 2 minutes Route: IVP; Site: right antecubital;cp4 18:40 Follow up: Response: No adverse reaction cp4 21:08 Follow up: Response: No adverse reaction cp4 19:40 Drug: levofloxacin IVPB 750 mg 150 ml IVPB once over 90 mins Volume: 150 ml; Route: cp4 IVPB; Infused Over: 90 mins; Site: right antecubital; 21:07 Follow up: Response: No adverse reaction; IV Status: Completed infusion cp4 19:40 Drug: Rocephin IV 2 grams IV at per protocol once; Given slow IV push per pharmarcy cp4 instructions Route: IV; Rate: per protocol; Site: right antecubital; 21:07 Follow up: Response: No adverse reaction; IV Status: Completed infusion cp4 19:40 Drug: Ketorolac IVP 30 mg IVP once Route: IVP; Site: right antecubital; cp4 21:07 Follow up: Response: No adverse reaction cp4 19:40 Drug: morphine IVP or IV 4 mg IVP once over 4 mins Route: IVP; Infused Over: 4 mins; cp4 Site: right antecubital; 21:07 Follow up: Response: No adverse reaction cp4 19:40 Drug: AZITHromycin PO 1 grams PO once Route: PO; cp4 21:07 Follow up: Response: No adverse reaction cp4 Disposition Summary: 07/23/23 19:11 Discharge Ordered Notes: Location: Home [facility] Problem: new [facility] Symptoms: have improved evl Condition: Stable vel Diagnosis - Epididymo-orchitis vel - UTI/ Urinary tract infection, site not specified vel Followup: vel - With: Private Physician - When: 2 - 3 days - Reason: Recheck today's complaints, Continuance of care, Re-evaluation by your physician Followup: [facility] - With: Hilario Macedo MD - When: 2 - 3 days - Reason: Recheck today's complaints, Continuance of care, Re-evaluation by your physician Discharge Instructions: - Discharge Summary Sheet [facility] - Epididymitis vel - Orchitis vel - Urinary Tract Infection, Adult [facility] - Urinary Tract Infection, Adult, [id number] [facility] - Hydrocele, Adult [facility] Forms: - Medication Reconciliation Form [facility] - Thank You Letter [facility] - Antibiotic Education [facility] - Prescription Opioid Use [facility] - Patient Portal Instructions [facility] - Leadership Thank You Letter [facility] Prescriptions: - acetaminophen-codeine 300-30 mg Oral tablet - take 2 tablet ORAL route every 6 hours as needed for pain; 20 tablet; Refills: vel 0, Product Selection Permitted - Ibuprofen 600 mg Oral Tablet - take 1 tablet ORAL route every 6 hours As needed take with food; 30 tablet; [facility] Refills: 0, Product Selection Permitted - levofloxacin 750 mg Oral tablet - take 1 tablet ORAL route once daily; 10 tablet; Refills: 0, Product Selection vel Permitted Signatures: Dispatcher [employer] Juve Coffman MD MD cha Martinez, Clarissa, RN RN cm10 Noé Chávez MD MD 2 Zaira Mcginnis cp4
[2023-07-23 22:32] VITALS: BP 124/84; TEMP 98; O2SAT 99
== END ==
LOC: ER 17:07
DX: N45.3 Epididymo-orchitis (principal); N39.0 Urinary tract infection, site not specified; F17.290 Nicotine dependence, other tobacco product, uncomplicated
CPT/HCPCS: 96365; 96368; 87088; 85025; 81001; 87086; 36415; 80053; 87590; 87490; 76870; 96375; 99284; J2405; J0696